=== PATIENT | female | born 1960 | race Caucasian/White ===

== ENCOUNTER 2019-03-12 | Emergency (ER) | payer SELFPAY ==
[2019-03-12] MEDS ORDERED: PREVACID30 M1 PO (23:20)
[2019-03-12] MEDS ORDERED: ESCITALOPRAM OX20 MG PO (23:20)
[2019-03-12] MEDS ORDERED: MEDDOSEPAK PO (23:34)
[2019-03-12] MEDS ORDERED: BENADRYL 50MG C50 MG PO (23:34)
[2019-03-12] MEDS ORDERED: PEPCID20 MG PO (23:34)
== END 2019-03-12 23:45 | disposition home or self-care (01) ==
DX: T63.481A Toxic effect of venom of other arthropod, accidental (unintentional), initial encounter (principal); L25.8 Unspecified contact dermatitis due to other agents